=== PATIENT | female | born 1995 | race Caucasian/White ===

== ENCOUNTER → 2021-05-21 | Outpatient (CLI) | payer BC, OTHER ==
[~2021-05-21] MED LIST: ASPIRIN81 MG PO; PEPCID20 MG PO; PRENATAL TABLE1 EAC1 PO
== END ==
LOC: HEART 5 15:00
DX: R55 Syncope and collapse (principal)
CPT/HCPCS: 93306

== ENCOUNTER 2021-08-24 18:20 | Observation (INO) | payer BC, OTHER | END 2021-08-25 09:58 | disposition home or self-care (01) | LOC: GENOP 18:20 → OB 19:55 | PROVIDERS: ADMIT Obstetrics & Gynecology | DX: O36.8130 Decreased fetal movements, third trimester, not applicable or unspecified (principal); O99.113 Other diseases of the blood and blood-forming organs and certain disorders involving the immune mechanism complicating pregnancy, third trimester; D68.61 Antiphospholipid syndrome; Z3A.31 31 weeks gestation of pregnancy; I10 Essential (primary) hypertension; U07.1 COVID-19; Z79.82 Long term (current) use of aspirin; Z79.899 Other long term (current) drug therapy | CPT/HCPCS: 59025; G0378 ==

== ENCOUNTER 2021-09-16 20:24 | Outpatient (CLI) | payer BC, OTHER | END 2021-09-16 21:50 | disposition home or self-care (01) | LOC: GENOP 20:24 | DX: O99.891 Other specified diseases and conditions complicating pregnancy (principal); R10.9 Unspecified abdominal pain; O99.113 Other diseases of the blood and blood-forming organs and certain disorders involving the immune mechanism complicating pregnancy, third trimester; D68.61 Antiphospholipid syndrome; Z3A.34 34 weeks gestation of pregnancy | CPT/HCPCS: 81001; G0463 ==

== ENCOUNTER 2021-10-01 17:07 | Inpatient (IN) | payer BC, OTHER ==
[2021-10-01 17:46] LABS: HEMOGLOBIN 10.2 gm/dl (12.3-15.3); RED BLOOD COUNT 3.58 M/UL (4.00-5.10); WHITE BLOOD COUNT 11.1 K/UL (4.5-11.0)
[2021-10-02] MEDS ORDERED: DOCUSATE SODIU100 MG PO (18:35)
[2021-10-02] MEDS ORDERED: IBUPROFEN600 MG PO (18:35)
[2021-10-02] MEDS ORDERED: LOVENOX40 MG/0.4 SQ (18:35)
[2021-10-03 07:00] LABS: HEMOGLOBIN 10.1 gm/dl (12.3-15.3)
== END 2021-10-04 17:50 | disposition home or self-care (01) | DRG 806 ==
LOC: GENOP 17:07 → OB 10-02 05:38
PROVIDERS: Obstetrics & Gynecology; ADMIT Obstetrics & Gynecology
PROC: 10E0XZZ Delivery of Products of Conception, External Approach (ICD-10-PCS; principal; 2021-10-02)
PROC: 10907ZC Drainage of Amniotic Fluid, Therapeutic from Products of Conception, Via Natural or Artificial Opening (ICD-10-PCS; 2021-10-02)
PROC: 3E033VJ Introduction of Other Hormone into Peripheral Vein, Percutaneous Approach (ICD-10-PCS; 2021-10-02)
PROC: 0UQGXZZ Repair Vagina, External Approach (ICD-10-PCS; 2021-10-02)
PROC: 10H07YZ Insertion of Other Device into Products of Conception, Via Natural or Artificial Opening (ICD-10-PCS; 2021-10-02)
PROC: 4A1H7CZ Monitoring of Products of Conception, Cardiac Rate, Via Natural or Artificial Opening (ICD-10-PCS; 2021-10-02)
PROC: 10H073Z Insertion of Monitoring Electrode into Products of Conception, Via Natural or Artificial Opening (ICD-10-PCS; 2021-10-02)
PROC: 3E02340 Introduction of Influenza Vaccine into Muscle, Percutaneous Approach (ICD-10-PCS; 2021-10-02)
DX: O99.12 Other diseases of the blood and blood-forming organs and certain disorders involving the immune mechanism complicating childbirth (principal); D68.61 Antiphospholipid syndrome; Z37.0 Single live birth; O10.92 Unspecified pre-existing hypertension complicating childbirth; O60.14X0 Preterm labor third trimester with preterm delivery third trimester, not applicable or unspecified; Z20.822 Contact with and (suspected) exposure to COVID-19; O69.81X0 Labor and delivery complicated by cord around neck, without compression, not applicable or unspecified; Z3A.36 36 weeks gestation of pregnancy; O99.344 Other mental disorders complicating childbirth; F41.9 Anxiety disorder, unspecified; F32.A Depression, unspecified; Z90.89 Acquired absence of other organs; Z82.49 Family history of ischemic heart disease and other diseases of the circulatory system; Z83.3 Family history of diabetes mellitus; O71.4 Obstetric high vaginal laceration alone; Z23 Encounter for immunization
CPT/HCPCS: 36415; 81001; 82800; 85014; 85018; 85025; 85730; 90686; 93005; J1650; J2590; J7120

== ENCOUNTER → 2022-04-27 | Day surgery (SDC) | payer BC, OTHER ==
[~2022-04-27] MED LIST changes: +DOCUSATE SODIU100 MG PO; +HYDROCHLOROTH12.5 MG PO; +HYDROXYZINE HCL50 MG PO; +IBUPROFEN600 MG PO; +LOVENOX40 MG/0.4 SQ; +LOW DOSE ASPIRI81 MG PO; +PROTONIX40 MG PO; +PROZAC40 MG PO; +STOOL SOFTENER100 M1 PO; +TOPROL XL25 MG PO; +VITAMIN C1000 MG PO; +WELLBUTRIN XL150 MG PO; +XANAX0.5 MG PO; +ZINC50 M2 PO
[2022-04-27 07:47] LABS: HEMOGLOBIN 13.1 gm/dl (12.3-15.3); RED BLOOD COUNT 4.32 M/UL (4.00-5.10); WHITE BLOOD COUNT 12.3 K/UL (4.5-11.0)
[2022-04-27 08:25] LABS: BUN/CREATININE RATIO 20 (0-10)
== END | disposition home or self-care (01) ==
LOC: OR 06:50
PROVIDERS: Obstetrics & Gynecology
DX: N89.8 Other specified noninflammatory disorders of vagina (principal); Z53.8 Procedure and treatment not carried out for other reasons; I10 Essential (primary) hypertension; K21.9 Gastro-esophageal reflux disease without esophagitis; Z79.899 Other long term (current) drug therapy
CPT/HCPCS: 36415; 80048; 81001; 84702; 84703; 85025; J2250; J2405; J2704; J3010